=== PATIENT | female | born 1985 | race Caucasian/White ===

== ENCOUNTER 2017-11-10 15:08 | Emergency (ER) | payer OTHER ==
[2017-11-10 15:29] VITALS: BP 126/76
[2017-11-10] MEDS ORDERED: BUFFERED LIDOCAINE 10 ML SYRINGE SUBQ STA (17:17)
--- NOTE | 2017-11-10 17:18 | ED Physician Documentation ---
PD HPI HEENT - Stated complaint Stated Complaint: L EAR PX - Chief complaint Chief Complaint: Heent - History obtained from History obtained from: Patient - History of Present Illness Timing - onset: Other (2 days of a painful lesion within the right left ear with some chills and diffuse facial pain. No possibility of .) Review of Systems Constitutional: reports: Chills. denies: Fever Ears: reports: Ear pain. 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 - Present Medications Home Medications: Ambulatory Orders Medication Instructions Recorded Confirmed Amox/Clav 875/125 [Augmentin] 1 each PO Q12H #14 tablet 11/10/17 - Allergies Allergies/Adverse Reactions: Allergies Allergy/AdvReac Type Severity Reaction Status Date / Time No Known Drug Allergies Allergy Verified 11/10/17 15:29 - Social History Does the pt smoke?: No Smoking Status: Never smoker Does the pt drink ETOH?: Yes Does the pt have substance abuse?: No - Immunizations Immunizations are current?: Yes PD ED PE NORMAL - Vitals Vital signs reviewed: Yes - General General: Alert and oriented X 3, No acute distress - HEENT HEENT: Other (There is a pointed abscess in the superior part of the external part of the left ear canal without cellulitis.) - Neck Neck: Supple, no meningeal sign, No bony TTP - Neuro Neuro: Alert and oriented X 3, Normal speech - Psych Psych: Normal mood, Normal affect Results - Vitals Vitals: Vital Signs - 24 hr 11/10/17 15:27 Temperature 36.3 C L Heart Rate 58 L Respiratory 16 Rate Blood Pressure 126/76 O2 Saturation 100 Oxygen O2 Source Room air Procedures - Abscess I&D (location) Left ear canal Preparation: Alcohol, Lidocaine 1% Incision: Purulent drainage (Sebaceous mostly), Culture obtained Other: Pt tolerated well, Dressing applied, Antibiotic prescribed PD MEDICAL DECISION MAKING - ED course ED course: She has an infected sebaceous cyst at the superior portion of the ear canal which was locally infiltrated with lidocaine and then a needle aspiration was done and it was completely drained and she is placed on both oral and topical antibiotics given the location. Departure - Departure Disposition: Home, Self Care Clinical Impression: Sebaceous cyst Condition: Good Record reviewed to determine appropriate education?: Yes Instructions: ED Cyst Sebaceous Infec IandD Prescriptions: Amox/Clav 875/125 [Augmentin] 1 each PO Q12H #14 tablet Comments: Return if worse. Follow-up with your doctor on Monday. Ibuprofen as needed for pain.
[2017-11-10] MEDS ORDERED: AMOX/CLAV 875 MG/125 MG TABLET PO STA (17:44)
[2017-11-10] MEDS ORDERED: NEOMYCIN/POLYMYX/HC OTIC DROPS LEFTEAR STA (17:44)
== END 2017-11-10 18:13 | disposition home or self-care (01) ==
LOC: ED 15:08
DX: L72.3 Sebaceous cyst (principal); K21.9 Gastro-esophageal reflux disease without esophagitis
CPT/HCPCS: 10060; 87070; 87205; 99283; A9270

== ENCOUNTER 2020-05-28 07:00 | Outpatient (CLI) | payer OTHER ==
--- NOTE | 2020-05-28 09:00 | MRI Report ---
PROCEDURE: Brain W/WO INDICATIONS: Headache CONTRAST: 7 ml Gadavist TECHNIQUE: Noncontrast axial T1 spin echo, axial T2 fast spin echo, sagittal and axial FLAIR, coronal T2 fast sp in echo, axial gradient echo, axial diffusion and ADC through the brain. After the administration of contrast, axial and coronal T1 spin echo with fat saturation through the brain. COMPARISON: None. FINDINGS: Image quality: Excellent. CSF spaces: Basal cisterns are patent. No extra-axial fluid collections. Ventricles are normal in size and shape. Brain: No midline shift. No intracranial bleeds or masses. Postcontrast sequences demonstrate no ab normal intracranial enhancement. There is cerebral volume loss for age. There is periventricular whi te matter chronic small vessel ischemic change. The brainstem appears normal. Diffusion-weighted im ages demonstrate no acute ischemic insults. No chronic ischemic insults. Normal intravascular flow voids are present. Skull and face: Calvarial marrow is normal in signal. Orbits appear normal. Sinuses: Sinuses and mastoids appear clear. IMPRESSION: Normal MRI of the brain. Reviewed by: Ralph Gonzales MD on 05/28/2020 8:59 AM PDT Approved by: Ralph Gonzales MD on 05/28/2020 8:59 AM PDT Station ID: [id number]
== END 2020-05-28 07:01 | disposition home or self-care (01) ==
LOC: DI 07:00
DX: R51 Headache (principal); R41.3 Other amnesia; R47.9 Unspecified speech disturbances
CPT/HCPCS: 70553; A9585

== ENCOUNTER 2020-06-22 09:29 | Outpatient (CLI) | payer OTHER | END 2020-06-22 09:30 | disposition home or self-care (01) | LOC: RT 09:29 | DX: R06.00 Dyspnea, unspecified (principal) | CPT/HCPCS: 94010 ==

== ENCOUNTER 2020-07-07 19:25 | Outpatient (CLI) | payer OTHER | END 2020-07-07 19:26 | disposition home or self-care (01) | LOC: SC 19:25 | PROVIDERS: ATTEND Internal Medicine Pulmonary Disease | DX: G47.61 Periodic limb movement disorder (principal); R06.83 Snoring; G47.10 Hypersomnia, unspecified; R53.83 Other fatigue | CPT/HCPCS: 95810 ==

== ENCOUNTER 2020-07-16 14:20 | Outpatient (CLI) | payer OTHER ==
--- NOTE | 2020-07-16 14:45 | SLEEP CARE CONSULTATION ---
Information from patient questionnaire entered by Jerry Greenfield. I have reviewed and concur with the information entered by Jerry Greenfield. This document represents the service I personally performed and the decisions made by , Marisela Milligan ARNP. History of Present Illness Service Date and Time: 07/16/2020 142 Initial Geddes Sleepiness Scale score: 14 (in 2019) Current Geddes Sleepiness Scale score: 8 Additional HPI information: ALPHONSE ANDERSON returns for follow up and results of the recently performed polysomnography. The patient was informed of the following findings: Study on 07-07-20 did not show any significant sleep disordered breathing with an average AHI of 0.6. She did have some mild periodic leg movement that did affect her sleep. I explained the pathophysiology behind obstructive sleep apnea. Patient does not have sleep apnea and was advised how weight gain could increase the risk of developing sleep apnea in the future. Patient has infrequent, light snoring. Snoring can be reduced by weight loss. Weight loss is best achieved with diet consult. Patient instructed to contact PCP for referral. Snoring can also be treated with an oral appliance from a dentist. Advised to check insurance coverage. In addition, an ENT evaluation can be do to see if other treatment is indicated. Patient counseled not drink alcohol less than 4 hours before bedtime as it can increase snoring and apnea. Patient was cautioned about risks of drowsy driving until sleepiness symptoms resolve. Sleep Study - Results Type of Sleep Study: Polysomnography Prior sleep studies: No Polysomnography/Home Sleep Study results: IMPRESSION: The quality of the study is good. The patient had reduced sleep efficiency due to a prolonged awakening in the middle of the night. Except for mild sleep fragmentation, the sleep architecture was normal. Respiratory monitoring showed no evidence of sleep disordered breathing (AHI = 0.6) or hypoxia (thomas oxygen saturation of 92%). The patient slept adequately in supine position (supine AHI = 0.3; non-supine = 0.96). Snore was infrequent and light in intensity. There was mild periodic leg movement of sleep contributing to the sleep fragmentation.. Cardiac rhythm was normal sinus rhythm without significant arrhythmia. No abnormal behavior (parasomnia) observed during the night. CONCLUSIONS and RECOMMENDATIONS: 1. Periodic leg movement (ICD G47.61), mild, treatment may be indicated. Clinical correlation advised. Allergies and Home Medications Drug allergies reviewed: Yes (NKDA) Home medication list reviewed: Yes (no changes) Review of Systems Review of systems same as previous: Yes (no changes) Physical Exam Heart Rate: 77 O2 Saturation: 98 Height: 5 ft 5 in Weight: 154 lb Body Mass Index: 25.6 BMI Classification: Overweight Impression and Plan 1. Periodic limb movement, mild, that did fragment patients sleep. Periodic limb movement of sleep (PLMS) is characterized by episodes of repetitive limb movements that occur during sleep and usually involve the lower limbs. The etiology is unknown but can be associated with restless leg syndrome (RLS), neuropathy, spinal cord diseases, kidney disease, rheumatological disorders, narcolepsy, obstructive sleep apnea, and REM sleep behavior disorder. Other factors that can increase PLMS and/or RLS are heredity and iron deficiency as reflected by a low serum ferritin level below 50 to 75mcg / L. Several medications can precipitate or aggravate PLMS such as selective serotonin re- uptake inhibitor antidepressants, tricyclic antidepressants, lithium, and dopamine receptor antagonists with the exception of bupropion. Caffeine can also aggravate PLMS and should be avoided. Sleep hygiene methods can also improve sleep as well as lifestyle changes such as regular exercise. Patient was advised that further evaluation is indicated and she should follow up with her PCP. 2. Snoring but no significant sleep disordered breathing. Patient advised that often weight loss will reduce snoring as well as apnea risk. An oral appliance can also be used for snoring. This would require a dental consultation. Patient cautioned not to use other online appliances as can cause bite issues. A list of accredited dentists in area and one local dentist who makes oral appliances given. Patient is advised to check if insurance will cover. An ENT consult can also be helpful to determine if any other treatment is an option. * Follow up with PCP on mild PLMS * Attempt to lose weight * Avoid alcohol consumption near bedtime * The patient is cautioned about driving until sleepiness is completely resolved. * Return as needed with worsening symptoms or change in symptoms. Visit Type: In Office Time Spent with Patient (minutes): 15 Provider Statement: I spent 100% of the Face to Face Visit with the patient with greater than 50% spent counseling the patient and coordination of care.
== END 2020-07-16 14:21 | disposition home or self-care (01) ==
LOC: SC 14:20
PROVIDERS: ATTEND Nurse Practitioner Family
DX: G47.61 Periodic limb movement disorder (principal); R06.83 Snoring; E66.3 Overweight; Z68.25 Body mass index [BMI] 25.0-25.9, adult
CPT/HCPCS: 99212; 99213

== ENCOUNTER 2021-02-11 22:05 | Outpatient (CLI) | payer OTHER | END 2021-02-11 22:06 | disposition critical access hospital (66) | LOC: EMS 22:05 | DX: R56.9 Unspecified convulsions (principal) | CPT/HCPCS: A0425; A0427 ==

== ENCOUNTER 2021-02-11 22:18 | Emergency (ER) | payer OTHER ==
[2021-02-11] MEDS ORDERED: LORazepam 2 MG/ML VIAL IVP STA (22:30)
[2021-02-11] MEDS ORDERED: SODIUM CHLORIDE 0.9% 1,000 ML IV STA (22:30)
--- NOTE | 2021-02-11 22:34 | ED Physician Documentation ---
History of Present Illness - Stated complaint Stated Complaint: ONEAL SIERRA - History obtained from History obtained from: Patient, EMS - Additonal information Additional information: Patient comes emergency department chief complaint of seizure-like activity. Patient states that she has been having episodes of "jerking" for the last 3 months on and off. She states it started more mildly and seems to be getting progressively worse. She states the episodes happen randomly and without an obvious trigger. She saw a neurologist in seizure really in early January and was told she has a functional neurologic trickle disorder. She was worked up with an MRI but not EEG prior to this diagnosis. The patient states she also has a history of headaches and that she is scheduled to see the same neurologist again in April for that problem. Patient states that she has not been under any stress lately. She has not had insomnia or any recent illness. She states that she was on a Zoom meeting with some friends tonight when she felt an episode coming on. She states the top of her head felt cool and that the sensation spread down into her toes torso which is typical. She then began to have jerking of her head and neck. The episode got worse and worse and while it normally only lasts a few minutes, this 1 lasted for 2 hours. Finally, her roommates called EMS who brought her here. Medics state that they gave the patient 2 mg of Versed IV in route and this seemed to calm her symptoms down somewhat. Patient denies use of alcohol or drugs. She states that other than the prolonged nature of this episode, it is typical of her usual episodes. She states she does not take any medication for the symptoms at home. No other complaints at this time. Review of Systems Ten Systems: 10 systems reviewed and negative Constitutional: reports: Reviewed and negative Eyes: reports: Reviewed and negative Ears: reports: Reviewed and negative Nose: reports: Reviewed and negative Throat: reports: Reviewed and negative Cardiac: reports: Reviewed and negative Respiratory: reports: Reviewed and negative GI: reports: Reviewed and negative : reports: Reviewed and negative Skin: reports: Reviewed and negative Musculoskeletal: reports: Reviewed and negative Neurologic: reports: Other (Involuntary motor activity.) Psychiatric: reports: Reviewed and negative Endocrine: reports: Reviewed and negative Immunocompromised: reports: Reviewed and negative PD PAST MEDICAL HISTORY - Past Medical History GI: GERD - Past Surgical History Past Surgical History: Yes 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 - Present Medications Home Medications: Ambulatory Orders Medication Instructions Recorded Confirmed Amox/Clav 875/125 [Augmentin] 1 each PO Q12H #14 tablet 11/10/17 - Allergies Allergies/Adverse Reactions: Allergies Allergy/AdvReac Type Severity Reaction Status Date / Time No Known Drug Allergies Allergy Verified 02/11/21 22:26 - Social History Does the pt smoke?: No Smoking Status: Never smoker Does the pt drink ETOH?: Yes Does the pt have substance abuse?: No - Immunizations Immunizations are current?: Yes PD ED PE NORMAL - Vitals Vital signs reviewed: Yes - General General: Alert and oriented X 3, Well developed/nourished, Other (Patient seems somewhat distraught.) - HEENT HEENT: Atraumatic, PERRL, EOMI, Moist mucous membranes - Neck Neck: Supple, no meningeal sign - Cardiac Cardiac: RRR, No murmur - Respiratory Respiratory: No respiratory distress, Clear bilaterally - Abdomen Abdomen: Soft, Non tender, Non distended - Derm Derm: Normal color, Warm and dry, No rash - Extremities Extremities: No deformity, No edema, No calf tenderness / cord - Neuro Neuro: Alert and oriented X 3, 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 Able to execute purposeful movements and follow commands.Speaks full sentences.) - Psych Psych: Normal mood, Normal affect Results - Vitals Vitals: Vital Signs - 24 hr 02/11/21 02/11/21 02/11/21 22:26 22:34 23:04 Temperature 37.6 C 37.6 C 98.2 C H Heart Rate 111 H 110 H 98 Respiratory 18 18 18 Rate Blood Pressure 147/93 H 119/99 H 129/85 H O2 Saturation 97 97 96 02/11/21 02/12/21 02/12/21 23:30 00:10 00:33 Temperature 36.8 C Heart Rate 96 101 H 91 Respiratory 17 18 17 Rate Blood Pressure 126/81 H 129/82 H 118/79 O2 Saturation 99 97 100 02/12/21 00:59 Temperature 36.7 C Heart Rate 88 Respiratory 16 Rate Blood Pressure 120/72 O2 Saturation 100 Oxygen O2 Source Room air - Labs Labs: Laboratory Tests 02/11/21 02/11/21 22:35 22:35 WBC 5.9 RBC 4.45 Hgb 15.1 Hct 44.4 MCV 99.8 H MCH 33.9 H MCHC 34.0 RDW 12.1 Plt Count 261 MPV 9.0 Neut # (Auto) 3.4 Lymph # (Auto) 2.1 [place] # (Auto) 0.3 Eos # (Auto) 0.1 Baso # (Auto) 0.0 Absolute Nucleated RBC 0.00 Nucleated RBC % 0.0 Sodium 140 Potassium 3.8 Chloride 106 Carbon Dioxide 21 Anion Gap 13.0 BUN 12 Creatinine 0.8 Estimated GFR (MDRD) 81 L Glucose 100 Calcium 9.1 Total Bilirubin 0.4 AST 30 ALT 26 Alkaline Phosphatase 55 Total Protein 7.6 Albumin 4.5 Globulin 3.1 Albumin/Globulin Ratio 1.5 Lipase 48 PD MEDICAL DECISION MAKING - ED course Complexity details: reviewed old records, reviewed results, re-evaluated patient, considered differential, d/w patient ED course: The patient was treated with Ativan and IV fluids, and one reevaluation, was found to be doing much better. She was able to ambulate to the bathroom and had no further jerks. She was able to carry on a normal conversation. Her labs were unremarkable. I felt the patient was stable for discharge home. We have discussed home management of symptoms, the need for neurological follow-up. And the usual indications for return. Departure - Departure Disposition: 01 Home, Self Care Clinical Impression: Functional neurological symptom disorder with abnormal movement Condition: Stable Instructions: ED Spasm Muscle Comments: Your labs look good tonight. Is not clear what caused your episode. Please follow-up with your neurologist to further evaluate your condition. No emergent condition has been identified today. Discharge Date/Time: 02/12/21 01:33
[2021-02-11 22:41] LABS: BASOPHILS % (AUTO) 0.3 %; EOSINOPHILS # (AUTO) 0.1 10^3/uL (0.0-0.7); EOSINOPHILS % (AUTO) 1.2 %; HCT - HEMATOCRIT 44.4 % (37.0-47.0); HGB - HEMOGLOBIN 15.1 g/dL (12.0-16.0); LYMPHOCYTES # (AUTO) 2.1 10^3/uL (1.5-3.5); MEAN CORPUSCULAR HEMOGLOBIN 33.9 pg (27.0-31.0); MEAN CORPUSCULAR VOLUME 99.8 fL (81.0-99.0); MONOCYTES # (AUTO) 0.3 10^3/uL (0.0-1.0); MONOCYTES % (AUTO) 5.1 %; NEUTROPHILS # (AUTO) 3.4 10^3/uL (1.5-6.6); NEUTROPHILS % (AUTO) 57.2 %; PLT - PLATELET COUNT 261 10^3/uL (130-450); RED BLOOD COUNT 4.45 10^6/uL (4.20-5.40); RED CELL DISTRIBUTION WIDTH 12.1 % (12.0-15.0); WHITE BLOOD COUNT 5.9 x10^3/uL (4.8-10.8)
[2021-02-11 22:53] LABS: ALBUMIN 4.5 g/dL (3.2-5.5); ALBUMIN/GLOBULIN RATIO 1.5 (1.0-2.2); BILIRUBIN,TOTAL 0.4 mg/dL (0.2-1.0); CALCIUM 9.1 mg/dL (8.5-10.3); CREATININE 0.8 mg/dL (0.4-1.0); POTASSIUM 3.8 mmol/L (3.5-5.0); TOTAL PROTEIN 7.6 g/dL (6.7-8.2)
[2021-02-12] MEDS ORDERED: KETOROLAC 30 MG/ML VIAL IVP STA (00:40)
[2021-02-12 01:00] VITALS: BP 120/72
== END 2021-02-12 01:33 | disposition home or self-care (01) ==
LOC: EDUNIT# → EDBD → ED 22:18
DX: R25.9 Unspecified abnormal involuntary movements (principal); R29.818 Other symptoms and signs involving the nervous system
CPT/HCPCS: 36415; 80053; 83690; 85025; 96361; 96374; 96375; 99284

== ENCOUNTER 2021-02-12 18:54 | Outpatient (CLI) | payer OTHER | END 2021-02-12 18:55 | disposition critical access hospital (66) | LOC: EMS 18:54 | DX: R56.9 Unspecified convulsions (principal) | CPT/HCPCS: A0425; A0427 ==

== ENCOUNTER 2021-02-12 19:23 | Emergency (ER) | payer OTHER ==
--- OUTSIDE RECORDS SUMMARY | 2021-02-12 19:39 | EXTERNAL MEDICAL SUMMARY RPT | Continuity of Care Document ---
:1985 Demographics Phone Unavailable Preferred Language Unknown Marital Status Unknown Hindu Affiliation Unknown Race Unknown Ethnic Group Unknown Author Organization [facility] Address [address] [place] [address] Phone Social History date description facility [id number]
[2021-02-12] MEDS ORDERED: diazePAM INJ 5 MG/ML SYRINGE IVP STA (19:48)
[2021-02-12 20:09] LABS: BASOPHILS % (AUTO) 0.2 %; EOSINOPHILS % (AUTO) 0.5 %; HCT - HEMATOCRIT 41.8 % (37.0-47.0); LYMPHOCYTES % (AUTO) 30.9 %; MEAN CORPUSCULAR HEMOGLOBIN 33.9 pg (27.0-31.0); MEAN CORPUSCULAR HGB CONC 33.5 g/dL (32.0-36.0); MEAN CORPUSCULAR VOLUME 101.2 fL (81.0-99.0); MEAN PLATELET VOLUME 9.2 fL (7.9-10.8); MONOCYTES # (AUTO) 0.4 10^3/uL (0.0-1.0); NEUTROPHILS % (AUTO) 62.1 %; PLT - PLATELET COUNT 235 10^3/uL (130-450); RED BLOOD COUNT 4.13 10^6/uL (4.20-5.40); WHITE BLOOD COUNT 6.4 x10^3/uL (4.8-10.8)
[2021-02-12 20:17] LABS: MUDS CUTOFF CONCENTRATIONS CUTOFF CONC BELOW:
[2021-02-12 20:18] LABS: ACETAMINOPHEN < 10 ug/mL (10-30); ALBUMIN/GLOBULIN RATIO 1.5 (1.0-2.2); ALKALINE PHOSPHATASE 47 IU/L (42-121); ALT ALANINE AMINOTRANSFERASE 24 IU/L (10-60); AST ASPARTATE AMINOTRANSFERASE 26 IU/L (10-42); BILIRUBIN,TOTAL 0.6 mg/dL (0.2-1.0); BUN - BLOOD UREA NITROGEN 11 mg/dL (6-20); CALCIUM 8.5 mg/dL (8.5-10.3); CARBON DIOXIDE - CO2 21 mmol/L (21-32); CHLORIDE 107 mmol/L (101-111); CREATININE 0.8 mg/dL (0.4-1.0); ETOH - ETHANOL 148.2 mg/dL; GFR - MDRD 81 (>89); GLUCOSE 87 mg/dL (70-100); LIPASE 26 U/L (22-51); POTASSIUM 3.6 mmol/L (3.5-5.0); SALICYLATE < 6.0 mg/dL; SODIUM 138 mmol/L (135-145); TOTAL PROTEIN 6.7 g/dL (6.7-8.2)
[2021-02-12] MEDS ORDERED: levETIRAcetam INJ 1,000 MG in SODIUM CHLORIDE 0.9% 100ML 100 ML IV STA (20:21)
[2021-02-12] MEDS ORDERED: LORazepam 2 MG/ML VIAL IVP STA (20:21)
[2021-02-12 20:25] LABS: BILIRUBIN,URINE NEGATIVE (NEGATIVE); GLUCOSE, URINE (UA) NEGATIVE (NEGATIVE); KETONES,URINE (UA) NEGATIVE (NEGATIVE); LEUKOCYTE ESTERASE, URINE SMALL (NEGATIVE); NITRITE,URINE POSITIVE (NEGATIVE); OCCULT BLOOD,URINE NEGATIVE (NEGATIVE); PH,URINE 6.5 PH (5.0-7.5); PROTEIN,URINE NEGATIVE (NEGATIVE); UROBILINOGEN,URINE 0.2 (NORMAL) E.U./dL (NORMAL)
[2021-02-12 20:29] LABS: CLARITY,URINE CLEAR (CLEAR); HCG UR QUAL NEGATIVE
[2021-02-12 20:39] LABS: AMPHETAMINE SCREEN,URINE NEGATIVE (NEGATIVE); BACTERIA,URINE Moderate /HPF (None Seen); BARBITURATE SCREEN,UR NEGATIVE (NEGATIVE); BENZODIAZEPINES SCREEN, URINE NEGATIVE (NEGATIVE); COCAINE SCREEN URINE NEGATIVE (NEGATIVE); METHADONE SCREEN, URINE NEGATIVE (NEGATIVE); METHAMPHETAMINES SCREEN, URINE NEGATIVE (NEGATIVE); OPIATE SCREEN, URINE NEGATIVE (NEGATIVE); OXYCODONE SCREEN, URINE NEGATIVE (NEGATIVE); PROPOXYPHENE SCREEN, URINE NEGATIVE (NEGATIVE); RBC,URINE 0-5 /HPF (0-5); SQUAMOUS EPITHELIAL CELL,UR RARE Squamous (<= Few); THC CANNABINOID SCREEN, URINE NEGATIVE (NEGATIVE); TRICYCLIC ANTIDEPRESSANT,URINE NEGATIVE (NEGATIVE)
[2021-02-12] MEDS ORDERED: cefTRIAXone 1 GM VIAL IVP STA (20:43)
--- NOTE | 2021-02-12 21:15 | ED Physician Documentation ---
History of Present Illness - Stated complaint Stated Complaint: CONVULSIONS - Chief complaint Chief Complaint: Neuro - History obtained from History obtained from: Patient - History of Present Illness Timing: Today Pain level max: 0 Pain level now: 0 - Additonal information Additional information: Patient is a 35-year-old female who presents to the emergency department generalized body convulsions. She states is been ongoing for several months, but worsening over the past 48 hours. She states that she has seen a neurologist for this. She states the neurologist was in [place] but does not know the name. She states that it starts as a twitching with her head and neck, she feels a cool sensation in the back of her head and over the left side of her face. Then goes into full body convulsions. She states that she can still speak during these usually. She states that she had an episode during a polysomnogram sleep study, does not know what the EEG showed. She states she had a normal MRI in August. She is on gabapentin at home as well as omeprazole. History of PTSD. She states that she drinks alcohol daily. Denies any possibility of . Patient states that she was diagnosed with functional neurological tics. 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 - Present Medications Home Medications: Ambulatory Orders Medication Instructions Recorded Confirmed LORazepam [Ativan] 0.5 mg PO Q8H PRN #7 tablet 02/12/21 Levetiracetam [Keppra] 500 mg PO BID #60 tablet 02/12/21 Omeprazole Magnesium [Prilosec] 205 mg PO DAILY 02/12/21 02/12/21 cephALEXin [Keflex] 500 mg PO Q6H #20 cap 02/12/21 - Allergies Allergies/Adverse Reactions: Allergies Allergy/AdvReac Type Severity Reaction Status Date / Time No Known Drug Allergies Allergy Verified 02/11/21 22:26 - Social History Does the pt smoke?: No Smoking Status: Never smoker Does the pt drink ETOH?: Yes ETOH Use: Wine Does the pt have substance abuse?: No - Immunizations Immunizations are current?: Yes - POLST Patient has POLST: No PD ED PE NORMAL - Vitals Vital signs reviewed: Yes - General General: Alert and oriented X 3, No acute distress, Well developed/nourished - HEENT HEENT: PERRL, Moist mucous membranes - Neck Neck: Supple, no meningeal sign - Cardiac Cardiac: RRR, Strong equal pulses - Respiratory Respiratory: No respiratory distress, Clear bilaterally - Abdomen Abdomen: Soft, Non tender, Non distended - Derm Derm: Warm and dry - Extremities Extremities: No edema, No calf tenderness / cord - Neuro Neuro: Alert and oriented X 3, legal editor 2-12 intact, No motor deficit, No sensory deficit, Normal speech Eye Opening: Spontaneous Motor: Obeys Commands Verbal: Oriented GCS Score: 15 - Psych Psych: Normal mood, Normal affect Results - Vitals Vitals: Vital Signs - 24 hr 02/12/21 02/12/21 02/12/21 19:34 19:50 20:34 Temperature 36.7 C Heart Rate 112 H 108 H 115 H Respiratory 22 26 H 21 Rate Blood Pressure 163/128 H 168/102 H 148/76 H O2 Saturation 98 94 97 02/12/21 02/12/21 02/12/21 20:45 20:52 21:22 Temperature 36.4 C L Heart Rate 99 101 H 114 H Respiratory 18 22 21 Rate Blood Pressure 142/88 H 142/88 H 157/92 H O2 Saturation 97 98 98 Oxygen O2 Source Room air - Labs Labs: Laboratory Tests 02/12/21 02/12/21 02/12/21 19:55 19:55 19:55 WBC 6.4 RBC 4.13 L Hgb 14.0 Hct 41.8 MCV 101.2 H MCH 33.9 H MCHC 33.5 RDW 12.0 Plt Count 235 MPV 9.2 Neut # (Auto) 4.0 Lymph # (Auto) 2.0 [place] # (Auto) 0.4 Eos # (Auto) 0.0 Baso # (Auto) 0.0 Absolute Nucleated RBC 0.00 Nucleated RBC % 0.0 Sodium 138 Potassium 3.6 Chloride 107 Carbon Dioxide 21 Anion Gap 10.0 BUN 11 Creatinine 0.8 Estimated GFR (MDRD) 81 L Glucose 87 Calcium 8.5 Total Bilirubin 0.6 AST 26 ALT 24 Alkaline Phosphatase 47 Total Protein 6.7 Albumin 4.0 Globulin 2.7 Albumin/Globulin Ratio 1.5 Lipase 26 TSH 2.64 Urine Color Urine Clarity Urine pH Ur Specific [place] Urine Protein Urine Glucose (UA) Urine Ketones Urine Occult Blood Urine Nitrite Urine Bilirubin Urine Urobilinogen Ur Leukocyte Esterase Urine RBC Urine WBC Ur Squamous Epith Cells Urine Bacteria Ur Microscopic Review Urine Culture Comments Urine HCG, Qual Salicylates < 6.0 Urine Opiates Screen Ur Oxycodone Screen Urine Methadone Screen Ur Propoxyphene Screen Acetaminophen < 10 L Ur Barbiturates Screen Ur Tricyclics Screen Ur Phencyclidine Scrn Ur Amphetamine Screen U Methamphetamines Scrn U Benzodiazepines Scrn Urine Cocaine Screen U Cannabinoids Screen Ethyl Alcohol 148.2 02/12/21 20:10 WBC RBC Hgb Hct MCV MCH MCHC RDW Plt Count MPV Neut # (Auto) Lymph # (Auto) [place] # (Auto) Eos # (Auto) Baso # (Auto) Absolute Nucleated RBC Nucleated RBC % Sodium Potassium Chloride Carbon Dioxide Anion Gap BUN Creatinine Estimated GFR (MDRD) Glucose Calcium Total Bilirubin AST ALT Alkaline Phosphatase Total Protein Albumin Globulin Albumin/Globulin Ratio Lipase TSH Urine Color LT. YELLOW Urine Clarity CLEAR Urine pH 6.5 Ur Specific [place] 1.010 Urine Protein NEGATIVE Urine Glucose (UA) NEGATIVE Urine Ketones NEGATIVE Urine Occult Blood NEGATIVE Urine Nitrite POSITIVE H Urine Bilirubin NEGATIVE Urine Urobilinogen 0.2 (NORMAL) Ur Leukocyte Esterase SMALL H Urine RBC 0-5 Urine WBC 6-10 H Ur Squamous Epith Cells RARE Squamous Urine Bacteria Moderate H Ur Microscopic Review INDICATED Urine Culture Comments INDICATED Urine HCG, Qual NEGATIVE Salicylates Urine Opiates Screen NEGATIVE Ur Oxycodone Screen NEGATIVE Urine Methadone Screen NEGATIVE Ur Propoxyphene Screen NEGATIVE Acetaminophen Ur Barbiturates Screen NEGATIVE Ur Tricyclics Screen NEGATIVE Ur Phencyclidine Scrn NEGATIVE Ur Amphetamine Screen NEGATIVE U Methamphetamines Scrn NEGATIVE U Benzodiazepines Scrn NEGATIVE Urine Cocaine Screen NEGATIVE U Cannabinoids Screen NEGATIVE Ethyl Alcohol PD MEDICAL DECISION MAKING - ED course Complexity details: reviewed old records, reviewed results, re-evaluated patient, considered differential, d/w patient ED course: Unclear etiology the patient's symptoms. She has already had a neurological work-up with no cause found. We will trial her on Keppra and see if this improves her symptoms. We will treat her UTI as well. Given Rocephin here and will place on Keflex for home. Recommend that she call her neurologist on Monday for further evaluation. We will prescribe a small amount of Ativan for when the symptoms occur as well. Patient counseled not to mix the Ativan and alcohol together. Patient counseled regarding signs and symptoms for which I believe and urgent re-evaluation would be necessary. Patient with good understanding of and agreement to plan and is comfortable going home at this time This document was made in part using voice recognition software. While efforts are made to proofread this document, sound alike and grammatical errors may occur. Unclear etiology of her movements. She does start with twitching of the head and neck which turns into spasming of the hands and arching of the back. Does not lose consciousness. Is verbal throughout. Departure - Departure Disposition: Home, Self Care Clinical Impression: Functional neurological symptom disorder with abnormal movement Alcohol intoxication Qualifiers: Complication of substance-induced condition: uncomplicated Qualified Code(s): F10.920 - Alcohol use, unspecified with intoxication, uncomplicated UTI (urinary tract infection) Qualifiers: Urinary tract infection type: acute cystitis Hematuria presence: without hematuria Qualified Code(s): N30.00 - Acute cystitis without hematuria Condition: Good Instructions: ED Alcohol Intoxication Follow-Up: your,doctor in 1 week [Other] [facility] [Provider Group] - Within 1 week Prescriptions: LORazepam [Ativan] 0.5 mg PO Q8H PRN #7 tablet PRN Reason: Spasms cephALEXin [Keflex] 500 mg PO Q6H #20 cap Levetiracetam [Keppra] 500 mg PO BID #60 tablet Comments: The cause of your symptoms is unclear. We will trial you on a small dose of Keppra and see if this helps. I recommend that you contact your neurologist on Monday for further evaluation. Let them know about the increasing episodes. We will also treat you for your UTI. Return if you worsen. Do not drive or operate heavy machinery until cleared by your neurologist. Also no swimming or taking baths, showers are fine.
[2021-02-12 23:01] VITALS: BP 118/77
== END 2021-02-12 23:23 | disposition home or self-care (01) ==
LOC: EDUNIT# → ED 19:23
DX: R25.3 Fasciculation (principal); R25.9 Unspecified abnormal involuntary movements; R29.818 Other symptoms and signs involving the nervous system; N30.00 Acute cystitis without hematuria; F10.920 Alcohol use, unspecified with intoxication, uncomplicated
CPT/HCPCS: 36415; 80053; 80306; 80307; 80320; 80329; 81001; 81025; 83690; 84443; 85025; 87086; 87181; 96361; 96365; 96374; 96375; 99283; 99284; J2060; 81003

== ENCOUNTER 2021-10-26 11:03 | Outpatient (CLI) | payer OTHER | END 2021-10-26 11:04 | disposition home or self-care (01) | LOC: NS 11:03 | DX: Z71.3 Dietary counseling and surveillance (principal); F50.2 Bulimia nervosa | CPT/HCPCS: 97802 ==